=== PATIENT | male | born 1975 | race Caucasian/White ===

== ENCOUNTER 2021-03-12 12:55 | Emergency (ER) | payer OTHER, SELFPAY ==
--- NOTE | ~2021-03-12 | XR_ITS ---
XR ankle LT min 3V DATE: 03/12/2021 13:14 INDICATION: Twisted left ankle 3 weeks ago. Lateral pain. TECHNIQUE: 4 views COMPARISON: None FINDINGS: Mild plantar and posterior calcaneal enthesopathy. No fracture or dislocation of the ankle or disruption of the ankle mortise. No periosteal reaction or bone destruction. IMPRESSION: No fracture or dislocation Reviewed, dictated and finalized at location A. IMPRESSION: No fracture or dislocation
--- NOTE | 2021-03-12 12:57 | ED.GENADULT ---
HPI - General Adult General Chief complaint: Extremity Injury, Lower Stated complaint: Left ankle Pain Time Seen by Provider: 03/12/21 12:57 Source: patient Mode of arrival: ambulatory Limitations: no limitations History of Present Illness HPI narrative: 45-year-old male patient presents to the [facility] with complaints of left ankle pain for the past 3 weeks. Patient states that he rolled his ankle about 3 weeks ago when taking his dogs out and states he thought it was just a sprain and states that it was getting better except for this past week he continues to have pain. Patient states he has been wrapping wound when he is up on it and has been taking ibuprofen for the pain. Patient denies any numbness or tingling. Patient states most the pain is right around the lateral malleolus area. Related Data Allergies Allergy/AdvReac Type Severity Reaction Status Date / Time No Known Allergies Allergy Unverified 03/12/21 13:01 Review of Systems Review of Systems: Narrative: CONSTITUTIONAL: Denies fever, chills, or sweats. EYES: Denies visual changes, redness, or discharge. ENT: Denies rhinorrhea, congestion, sore throat, or otalgia. CARDIOVASCULAR: Denies chest pain, palpitations, or edema. RESPIRATORY: Denies cough or dyspnea. GASTROINTESTINAL: Denies abdominal pain, nausea, vomiting, or diarrhea. GENITOURINARY: Denies dysuria or hematuria. SKIN: Denies rash or itching. MUSCULOSKELETAL: Denies back pain, joint pain, or myalgia. Positive left ankle pain x3 weeks NEUROLOGIC: Denies headache, numbness, or weakness. PSYCHIATRIC: Denies anxiety or depression. PMFSH Past Medical History Medical History (Updated 03/12/21 @ 13:48 by PHILOMENA Munoz) Bronchitis Right wrist fracture Family History Family History (Updated 03/12/21 @ 12:59 by PHILOMENA Munoz) Other Alzheimer's dementia Breast cancer Comments At the time of my signature I agree with nursing past medical history, surgical, social, and family history. There is no relevant family history pertinent to the presenting complaint. Exam Narrative: Exam Narrative: GENERAL: Well-appearing, well-nourished, and in no acute distress. HEAD: Normocephalic, atraumatic. EYES: PERRLA and EOMI. ENT: Nares clear, no rhinorrhea or epistaxis. Mucous membranes moist. NECK: Supple. No lymphadenopathy CHEST: Clear to auscultation. No respiratory distress. HEART: Regular rate and rhythm. No murmur heard. Normal peripheral pulses. ABDOMEN: Soft, nontender, nondistended, normal active bowel sounds. EXTREMITIES: Patient is able to bear weight and ambulate but has increased pain in the left ankle. The L ankle is without obvious asymmetry or deformity when compared to the R ankle. Patient can flex/extend, invert/elisabeth. No obvious surface trauma, ecchymosis, patient has some soft tissue swelling noted to the lateral side around the lateral malleolus area. Bony tenderness to palpation over the lateral malleolus. Anterior talofibular ligament, posterior talofibular ligament, calcaneofibular ligament nontender and without swelling. No tenderness or deformity of the midfootor over the proximal fifth metatarsal. Good DP and posterior tibial pulses and sensation to light touch normal. Talar tilt test is negative for ligament laxity to valgus or vargus stress. Negative anterior draw. Peroneal nerve is intact with strong eversion and plantar flexion. SKIN: Warm, dry, no rash. NEURO: No focal deficits. Alert and oriented x3. Course Reevaluation(s) Reevaluation #1: Reevaluated patient notified him that the x-ray is negative for any acute fractures. Discussed with him that this is most likely a sprain and may take some time to fully heal. Patient verbalized understanding denies any other questions or concerns at this time. Vital Signs Vital signs: Vital Signs Temperature 37.1 C 03/12/21 13:05 Pulse Rate 110 H 03/12/21 13:05 Respiratory Rate 16 03/12/21 13:05 Blood Pressure 115/6
[2021-03-12 13:05] VITALS: BP 115/66; PULSE 110; RESP 16; TEMP 37.1; O2SAT 99
== END 2021-03-12 13:51 | disposition home or self-care (01) ==
PROVIDERS: Emergency Provider Nurse Practitioner Family
DX: S93.402A Sprain of unspecified ligament of left ankle, initial encounter (principal); X50.9XXA Other and unspecified overexertion or strenuous movements or postures, initial encounter
CPT/HCPCS: 73610; 99213; G0463

== ENCOUNTER 2021-08-17 09:51 | Emergency (ER) | payer OTHER, SELFPAY ==
[2021-08-17 10:02] VITALS: BP 135/89; PULSE 72; RESP 16; TEMP 36.3; O2SAT 99
--- NOTE | 2021-08-17 10:07 | ED_ITS ---
HPI - Dental/Oral General Chief complaint: Dental/Oral Stated complaint: facial pain Source: patient and RN notes reviewed Limitations: no limitations History of Present Illness HPI Narrative: The vaccinated patient, previously mostly healthy, presents with right upper jaw pain. Patient states he was seen by dentist in the last week, and is being considered for root canal at the same tooth. He reports he had a recent cleaning, and now has a couple day history of right maxillary molar tooth pain. No fever, visible swelling, hoarseness, trismus, discharge; symptoms are mild, worse with eating with tooth sensitivity then Related Data Allergies Allergy/AdvReac Type Severity Reaction Status Date / Time No Known Allergies Allergy Verified 08/17/21 09:57 Review of Systems Review of Systems: General/Constitutional: No weight loss,fever Eyes: N0: Redness,discharge Ears/Nose/Throat: No: Epistaxis,ear discharge Respiratory: Denies: Hemoptysis Gastrointestinal: No Vomiting, Bleeding-rectal Skin: No Lumps, eruption Neurologic: No Focal Weakness,Sz Hematologic: Denies: Petechiae/Purpura Psychiatric: No: Suicida ideationl All Other Systems: Reviewed and Negative [facility] Past Medical History Medical History (Updated 08/17/21 @ 10:34 by Raudel Zurita MD) Bronchitis Right wrist fracture Family History Family History (Updated 03/12/21 @ 12:59 by PHILOMENA Munoz) Other Alzheimer's dementia Breast cancer Comments At time of signature, agree with nursing past medical, surgical, social and family history. There is no relevant family history pertinent to the presenting complaint Exam Narrative: General Appearance: Well appearing, Conjunctiva clear Ears: External ear normal, Auditory canal normal Nose: Normal nose Mouth/Throat: Normal appearing (without jaw swelling), Normal lips, MM moist, Uvula midline (scattered dental caries and fillings,) Neck: Supple, No adenopathy Respiratory: Airway patent, No respiratory distress, Clear to auscultation Musculoskeletal: Full ROM, Non tender, Normal strength Skin: Warm, Dry, Normal color Neurological: A&O x3, Normal affect Course Vital Signs Vital signs: Vital Signs Temperature 97.3 F L 08/17/21 10:02 Pulse Rate 72 08/17/21 10:02 Respiratory Rate 16 08/17/21 10:02 Blood Pressure 135/89 08/17/21 10:02 Pulse Oximetry 99 08/17/21 10:02 Temperature 97.3 F L 08/17/21 10:02 Pulse Rate 72 08/17/21 10:02 Respiratory Rate 16 08/17/21 10:02 Blood Pressure 135/89 08/17/21 10:02 Pulse Oximetry 99 08/17/21 10:02 Discharge Plan Discharge Clinical Impression: Gingivitis Patient Disposition: Home, Self-Care Condition: Stable Instructions: Antibiotic Form, Gingivitis (ED) Prescriptions: New lidocaine HCl [Lidocaine Viscous] 2 % solution 5 ml MUCOUS MEM QID PRN (Reason: pain) Qty: 100 RF: 0 amoxicillin 875 mg tablet 875 mg PO Q12H Qty: 14 RF: 0 acetaminophen-codeine 300-30 mg tablet 1 - 1.5 tablet PO HS PRN (Reason: pain) Qty: 10 RF: 0 tramadol 50 mg tablet 50 - 75 mg PO BID PRN (Reason: pain) Qty: 30 RF: 0 Follow-up/Referrals: UNKNOWN,DOCTOR [Primary Care Provider] - Stand Alone Forms: Work/School Release IP
== END 2021-08-17 10:15 | disposition home or self-care (01) ==
PROVIDERS: Emergency Provider Emergency Medicine
DX: K05.10 Chronic gingivitis, plaque induced (principal)
CPT/HCPCS: 99213; G0463

== ENCOUNTER 2023-03-17 16:49 | Emergency (ER) | payer OTHER, SELFPAY ==
--- NOTE | ~2023-03-17 | CT_ITS ---
EXAMINATION: CT abdomen pelvis w con DATE: 03/17/2023 18:06 INDICATION: Umbilical hernia. Abdominal pain. Nausea. TECHNIQUE: Computed tomography (CT) of the abdomen and pelvis was performed with 100 mL Omnipaque 350 intravenous contrast. Automated exposure control and iterative reconstruction technique were employe d. The dose-length product was 1637.90 mGy-cm. COMPARISON: None. FINDINGS: The visualized portions of the lung bases are clear without pneumonia or pleural effusion. The heart size is normal. No pericardial effusion. The liver, gallbladder, spleen, pancreas, adrenal glands, and kidneys are normal. There is an umbilical hernia containing fat with fat stranding, consi stent with inflammation versus scarring. There are bilateral inguinal hernias containing fat. There a re no dilated loops of bowel. The appendix is normal. There are no pathologically enlarged lymph node s. There is no free intraperitoneal fluid. There is mild thoracolumbar spondylosis. IMPRESSION: 1. Umbilical hernia containing fat with fat stranding, consistent with inflammation versus scarring. 2. Bilateral inguinal hernias containing fat. Reviewed, dictated and finalized at location A. IMPRESSION: 1. Umbilical hernia containing fat with fat stranding, consistent with inflamma tion versus scarring. 2. Bilateral inguinal hernias containing fat.
[2023-03-17 16:53] VITALS: BP 136/95; PULSE 69; RESP 19; TEMP 36.7; O2SAT 99
--- NOTE | 2023-03-17 17:23 | ED.GENADULT ---
HPI - General Adult General Chief complaint: Unspecified <ROMINA Whitley Last Filed: 03/17/23 20:33> Stated complaint: umbilical hernia pain <ROMINA Whitley Last Filed: 03/17/23 20:33> Time Seen by Provider: 03/17/23 16:59 <ROMINA Whitley Last Filed: 03/17/23 20:33> Source: patient <ROMINA Whitley Last Filed: 03/17/23 20:33> Mode of arrival: ambulatory <ROMINA Whitley Last Filed: 03/17/23 20:33> Limitations: no limitations <ROMINA Whitley Last Filed: 03/17/23 20:33> History of Present Illness HPI narrative: Patient is a 47 y/o male who presents to the ED with c/o painful umbilical hernia. Patient reports he has had a known umbilical hernia for several years. He states that it is usually soft, easily reducible, nontender. It became slightly tender over the last few days, worse today, with pain slightly radiating outward across his lower abdomen. He states it remains about the same size, but feels more firm, red, and painful to the touch. It does not ever reduce fully back in flat to his abdomen. He had a normal bowel movement yesterday and this morning. He had a small bowel movement prior to arrival which she states was much smaller than his usual bowel movements. Reports slight nausea, but denies vomiting, fevers, rectal bleeding, melena. <ROMINA Whitley Last Filed: 03/17/23 20:33> Related Data Allergies/adverse reactions: Allergies Allergy/AdvReac Type Severity Reaction Status Date / Time No Known Allergies Allergy Verified 03/17/23 17:15 <ROMINA Whitley Last Filed: 03/17/23 20:33> Review of Systems Review of Systems: CONSTITUTIONAL: Denies fever, chills, or sweats. CARDIOVASCULAR: Denies chest pain RESPIRATORY: Denies dyspnea. GASTROINTESTINAL: see HPI. GENITOURINARY: Denies dysuria or hematuria. <Madhuri Wilkinson PA-C - Last Filed: 03/17/23 20:33> All systems reviewed & are unremarkable except as noted in HPI and below <Madhuri Wilkinson PA-C - Last Filed: 03/17/23 20:33> [facility] Past Medical History Medical History: Medical History (Updated 03/17/23 @ 20:19 by Madhuri Wilkinson PA-C) Bronchitis Right wrist fracture Umbilical hernia <Madhuri Wilkinson PA-C - Last Filed: 03/17/23 20:33> Surgical History Surgical History: Surgical History (Updated 03/17/23 @ 17:36 by Madhuri Wilkinson PA-C) History of colonoscopy <Madhuri Wilkinson PA-C - Last Filed: 03/17/23 20:33> Family History Family History: Family History (Updated 03/12/21 @ 12:59 by PHILOMENA Munoz) Other Alzheimer's dementia Breast cancer <Madhuri Wilkinson PA-C - Last Filed: 03/17/23 20:33> Social History Social History: Social History (Updated 03/17/23 @ 17:36 by Madhuri Wilkinson PA-C) Smoking status: Never smoker <Madhuri Wilkinson PA-C - Last Filed: 03/17/23 20:33> Exam Narrative: GENERAL: Well appearing, obese with BMI of 38.7, non-toxic, in no acute distress. HEAD: Normocephalic, atraumatic. NECK: Supple. No adenopathy, no masses. RESPIRATORY: Airway patent, respirations nonlabored. Clear to auscultation bilaterally, no rales, rhonchi, wheezing. CARDIOVASCULAR: Regular rate and rhythm without murmurs, rubs, or gallops. Peripheral pulses 2+ and equal bilaterally. ABDOMINAL: Soft, approximately 5 x 5 cm umbilical hernia bulge, slightly firm, tender to palpation, skin slightly erythematous. No warmth. Unable to reduce. Mild tenderness throughout immediate periumbilical region. Nondistended, no hepatosplenomegaly. Normoactive BS. MUSCULOSKELETAL: Moves all extremities. Strength/ROM intact without gross deformities. SKIN: Warm, dry, normal color. No rashes. NEURO: A&O X3. Speech clear. Cranial nerves II-XII grossly intact. Steady gait. No ataxic movements. PSYCHIATRIC: Appropriate mood and affect.
[2023-03-17 17:25] LABS: Basophils Percent Auto 0.6 % (0.2-1.2); Eosinophils Absolute Auto 0.2 K/mm3 (0-0.3); Eosinophils Percent Auto 3.4 % (0-4.4); Hematocrit 43.4 % (42.0-52.0); Immature Granulocyte Absolute 0.01 K/mm3 (0.00-0.031); Immature Granulocyte Percent A 0.2 % (0-0.5); Lymphocytes Absolute Auto 1.57 K/mm3 (0.9-3.2); Lymphocytes Percent Auto 24.5 % (18.3-44.2); Mean Corpuscular HGB Conc 34.6 g/dl (32-36); Mean Corpuscular Hemoglobin 29.4 pg (26-34); Mean Corpuscular Volume 85.1 fl (80-100); Mean Platelet Volume 10.9 fl (7.4-10.4); Monocytes Absolute Auto 0.4 K/mm3 (0.1-0.6); Monocytes Percent Auto 5.8 % (2.6-8.5); Neutrophils Absolute Auto 4.2 K/mm3 (1.3-6.7); Neutrophils Percent Auto 65.5 % (45.5-73.1); Platelet Count Result 154 k/mm3 (150-375); Red Cell Distribution Width 12.3 % (11.5-14.5); White Blood Count 6.4 K/mm3 (4.5-10.0)
[2023-03-17 17:26] LABS: Appearance Urine Clear (Clear); Bilirubin Urine Negative (Negative); Blood Urine Negative (Negative); Color Urine Yellow (Yellow); Glucose Urine UA Negative (Negative); Ketones Urine Trace mg/dL (Negative); Leukocyte Esterase Ur Negative LEU/UL (Negative); Nitrate Urine Negative (Negative); Protein Urine Negative (Negative); Specific Grav Ur 1.021 (1.001-1.035); pH Urine 6.5 (5.0-9.0)
[2023-03-17 17:34] LABS: Alanine Aminotransferase 38 U/L (6-50); Albumin Level 4.2 g/dL (3.5-5.1); Alkaline Phosphatase 51 U/L (38-126); Anion Gap 8 mmol/L (8-16); Aspartate Amino Transferase 33 U/L (17-59); Bilirubin,Total 0.6 mg/dL (0.2-1.3); Blood Urea Nitrogen 12 mg/dL (9-20); Calcium 8.6 mg/dL (8.4-10.2); Carbon Dioxide 24 mmol/L (22-30); Chloride 106 mmol/L (98-107); Estimated CRCL calculation 124 ml/min; Estimated Glomerular Filt Rate > 60; Glucose 120 mg/dL (65-110); Lipase 55 U/L (23-300); Potassium 3.6 mmol/L (3.4-5.0); Sodium 138 mmol/L (137-145)
[2023-03-17] MEDS: ACETAMINOPHEN 500 MG TABLET 1000 MG PO (17:38)
[2023-03-17 17:44] VITALS: BP 143/96; PULSE 67; RESP 18; O2SAT 99
[2023-03-17 17:50] LABS: Add Urine Microscopic? NO
[2023-03-17 19:12] LABS: Lactic Acid Reflex 1.3 mmol/L (0.7-2.0)
[2023-03-17 19:23] VITALS: BP 161/97; O2SAT 99
--- NOTE | 2023-03-17 19:27 | PC.NURSE ---
This RN assumed care of patient.
[2023-03-17] MEDS: KETOROLAC 30 MG/ML VIAL (*BKC) IV PUSH (19:32)
[2023-03-17 19:35] VITALS: BP 149/90; PULSE 61; RESP 18; O2SAT 99
== END 2023-03-17 20:32 | disposition home or self-care (01) ==
PROVIDERS: Emergency Provider Physician Assistant
DX: K42.0 Umbilical hernia with obstruction, without gangrene (principal); K40.20 Bilateral inguinal hernia, without obstruction or gangrene, not specified as recurrent
CPT/HCPCS: 36415; 74177; 80053; 81003; 83605; 83690; 85025; 96374; 99284; A9270; J1885; Q9967

== ENCOUNTER 2023-06-06 14:24 | Outpatient (CLI) | payer OTHER, SELFPAY | END 2023-06-06 14:25 | disposition home or self-care (01) | LOC: ANHSURGERY 14:29 | PROVIDERS: PCP Student in an Organized Health Care Education/Training Program; Visit Provider Surgery | DX: K43.9 Ventral hernia without obstruction or gangrene (principal); Z01.818 Encounter for other preprocedural examination | CPT/HCPCS: 36415; 86850; 86900; 86901 ==

== ENCOUNTER 2023-06-08 00:06 | Day surgery (SDC) | payer OTHER, SELFPAY ==
[2023-06-05 08:31] VITALS: BMI 40.8
--- NOTE | 2023-06-05 08:36 | PC.NURSE ---
Addendum entered by Glayds Stauffer RN 06/06/23 07:10: PLEASE SHOWER WITH HIBICLENS (CHLORHEXADINE) EITHER THE NIGHT BEFORE OR MORNING OF SURGERY. Original Note: Report to the Outpatient Waiting Room, entrance under the green pavilion located off [facility], at time _0600_ on date _[id number]_. Planned Procedure Time: _729_. Time changes happen often and if your time is changed the preop area will call you the afternoon before. - You and your visitor will be asked to self-screen and do not enter if you have any COVID symptoms. - A mask is optional within the hospital at this time. Patients may have clear liquids (water, carbonated beverages, clear teas, apple juice) until 3 hours prior to surgery with a maximum of 20 ounces. - No food from midnight until time of surgery Take the following medications with a SIP of water the morning of surgery: ____None DO NOT STOP ANY OF YOUR OTHER PRESCRIPTION MEDICATIONS PRIOR TO SURGERY ?EXCEPT THE FOLLOWING Medications to discontinue per physician ____None Date to take last dose Please no make-up, nail albanian, hairspray, perfume, deodorant, or body powder the day of surgery. No jewelry (including any body piercings) or valuables the day of surgery, leave them at home. Please take a shower or bath the night before, or the morning of, surgery with an antibacterial soap. Wear comfortable, loose fitting clothing. - Jewelry must be removed prior to entering the operating room. Rings and piercings that are not removed may be cut off. - The hospital will not accept responsibility for valuables. - Please leave all valuables, including medications, at home the day of surgery. If you are going home after surgery, a licensed tractor trailer driver must drive you home. - NO public transportation without another adult if you receive anesthesia. - We recommend that an adult stay with you for 24 hours following discharge. - We also recommend that you do not drive, make important decision, drink alcoholic beverages, or take any drugs that were not prescribed by your health care provider for at least 24 hours after your discharge time. Follow any additional instructions given to you from your surgeon. If you or anyone in your household have experienced Covid symptoms in the past week, please notify your surgeon or the nurse liaison at the phone number below for possible testing. Telephone instructions given to __Patient___and asked if any additional questions and then verbalized understanding. Patient advised to call surgeon office or pre surgery nurse liaison [phone] if any additional questions.
--- NOTE | 2023-06-06 15:19 | PM.SD2 ---
Same Day Admit/Disch: HPI History of Present Illness Chief complaint: 3cm Umb Hernia Narrative: Kodi Guzman is a 47 year old male who was working on a fence in early March and developed pain in the umbilicus. He had a known umbilical hernia for at least 5 years prior to this. The hernia was however bigger and hurting considerably. He went to the emergency room on March 17. The hernia was partially reduced and CT scan showed it to be a fat containing hernia with no bowel involvement. In the subsequent 2-3 days, the pain went away entirely. He was seen in the office and found to have a reducible umbilical hernia with a 3 cm defect. After discussion, he is taken to surgery now for robotic laparoscopic repair of umbilical hernia with mesh. [facility] Past Medical History Medical History Bronchitis Right wrist fracture Umbilical hernia Surgical History Surgical History H/O wisdom tooth extraction History of colonoscopy Family History Family History Other Alzheimer's dementia Breast cancer Social History Social History Smoking status: Never smoker Alcohol intake: current Substance use: never Living arrangements: with family Spiritual care concerns: No Same Day Admit/Disch: Med Pre-admit Medications Home Medications Medication Instructions Recorded Confirmed Type ketorolac 10 mg tablet 10 mg PO Q6H 4 days #16 tabs 06/08/23 Rx oxycodone-acetaminophen 5 mg-325 0.5 - 1 tablet PO Q6H PRN pain #10 06/08/23 Rx mg tablet tabs Exam Const: General: comfortable, no acute distress, alert and awake HENMT: Head: normocephalic and atraumatic Mouth: Yes Normal oral and palatal mucosa present Eyes: Conjunctivae: conjunctivae normal Pupils: Equal, round and reactive pupils present EOM: EOMs intact bilaterally Neck: Neck: normal visual inspection, no lymphadenopathy and nontender Resp: Effort & Inspection: normal respiratory effort Auscultation: clear to auscultation bilaterally Cardio: Rate: regular rate Rhythm: regular rhythm Heart sounds: no gallops, no murmurs and no rubs GI: Inspection: non-distended, obesity and visible herniation (Umbilical) GI Palp: Yes Soft to palpation, No Tenderness to palpation present (GI), No Hepatomegaly present, No Splenomegaly present and Yes Hernia present (3 cm umbilical hernia defect, reducible) : Male General Exam: No hernia (No inguinal hernia noted right or left groin area) Skin: Lesions: no lesions Rashes: no rashes Neuro: General: no focal motor deficits and CN's II-XI intact bilaterally Cranial nerves: Yes Equal, round and reactive pupils present, Yes Bilaterally intact EOM present, Yes facial symmetry and Yes Midline tongue present Speech: normal speech Motor exam (neuro): 5/5 motor strength present throughout and Motor abnormalities not present Extrem: General: no clubbing, cyanosis or edema and edema Psych: Affect: normal affect Thought process: Normal thought process present Insight: Good insight present (Psych) DS: Data Imaging Attestation: I personally reviewed and interpreted this imaging study as follows: (CT scan abdomen and pelvis from March 17, 2023) My impression: Large umbilical hernia Radiologist's impression: Umbilical hernia and bilateral fat containing inguinal hernias DS: Summary Time Spent with Patient Time attestation: Total time spent providing and/or coordinating discharge services: DS: Admitting Diagnosis Discharge Date 06/08/2023 Admitting Diagnosis Umbilical hernia-3 cm defect, plan to repair with robotic laparoscopic approach. Mesh will be used and the defect will be closed. The procedure the risks the benefits and the usual recovery have been discussed. Plan is for this to be an outpatient procedure.
[2023-06-08] VITALS (10 sets, daily range): BP systolic 128–148; BP diastolic 78–92; PULSE 57–70; RESP 11–20; TEMP 36.2–36.6; O2SAT 94–100
[2023-06-08] MEDS: ACETAMINOPHEN 500 MG TABLET 1000 MG PO (07:00)
[2023-06-08] MEDS: LACTATED RINGERS 1,000 ML 30 ML IV CONT ×2 (07:05→09:57)
[2023-06-08] MEDS: KETOROLAC 15 MG/ML VIAL (*BKC) IV PUSH (07:10)
--- NOTE | 2023-06-08 07:12 | P.PNAN_ITS ---
Anes - Initial Pre Proc Eval Procedure: Operation Date: 06/08/23 07:30 Proposed Procedures p Robotic Laparoscopic Repair Umbilical Hernia with Mesh - Antonio Wadsworth MD Date/Time: 06/08/23 07:12 Surgeon: Antonio Wadsworth MD Pre Op Diagnosis: 3cm Umb Hernia Patient Data Age: 47 Gender: M Height: 1.83 m Weight: 136.4 kg Allergies Allergy/AdvReac Type Severity Reaction Status Date / Time No Known Allergies Allergy Verified 06/08/23 06:20 Home Medications Medication Instructions Recorded Confirmed Type No Home Medications 03/26/23 06/08/23 History Patient hx anesthesia problems: none Family hx anesthesia problems: none Results Review: All pre-operative results and documents have been reviewed as part of the pre- operative evaluation. PMFSH Past Medical History Medical History Bronchitis Right wrist fracture Umbilical hernia Surgical History Surgical History H/O wisdom tooth extraction History of colonoscopy Family History Family History Other Alzheimer's dementia Breast cancer Social History Social History Smoking status: Never smoker Alcohol intake: current Substance use: never Living arrangements: with family Spiritual care concerns: No Anes - Eval Final PreProcedure Day of Procedure 06/08/23 07:12 Patient weight: morbidly obese Heart: regular rate and rhythm Lungs: clear to auscultation Airway: Mallampati scale class III Neurological: alert and oriented Last oral intake: >/= 8 hours ASA classification: III Emergent: no Anesthetic plan: proceed Anesthesia type and monitoring: general ETT and standard monitoring Results Review: All pre-operative results and documents have been reviewed as part of the pre- operative evaluation. Informed Consent: The patient's anesthetic plan and its attendant risks and benefits were discussed with the patient/family/POA. Questions were solicited and answers provided to the satisfaction of the patient/family/POA.
--- NOTE | 2023-06-08 07:13 | WPDHPUPDATE1 ---
History and Physical Update Update Date/Time: 06/08/23 07:13 History and Physical has been reviewed, including an updated exam of the patient. There are NO changes in the patient's condition. Risks, benefits, and alternatives have been discussed and questions answered. Patient agrees to proceed with procedure.
[2023-06-08] MEDS: ceFAZolin 3 GM/D5W 100 ML 100 ML IVPB (07:30)
[2023-06-08] MEDS: BUPIVACAINE/EPINEPHRINE 0.5% 10 ML VIAL 30 ML INFILTRATE (08:22)
--- NOTE | 2023-06-08 09:50 | P.OP_ITS ---
Procedure Note - Detailed Date of Procedure 06/08/23 Pre-op Diagnosis 3cm Umb Hernia Post-op Diagnosis Other (2 cm umbilical hernia) Procedure Performed Robotic laparoscopic repair 2 cm umbilical hernia with 10 x [address] mesh Surgeon Antonio Wadsworth MD Client Advisor Radha DIANA Anesthesia General and Local (0.25% Marcaine with epinephrine) Indications Patient has history of longstanding umbilical hernia. He recently had an episode where the hernia became incarcerated. It was able to be reduced. He is taken to surgery now for repair of the umbilical hernia. Findings He had at 2 cm hernia defect. It was closed transversely. No other significant findings were noted Description of Procedure Patient was taken to surgery and induced into general anesthesia. The abdomen is prepped and draped. There was a bump under his left hip and shoulder so that the left flank was more exposed. Local was infiltrated prior to placement of each of the trocars. First incision was at the left costal margin close to the anterior axillary line. The varies needle was introduced and insufflation carried out. We then placed a 5 mm optical trocar. Intraperitoneal location was verified and the hernia defect was visualized. A left lower quadrant and a left mid abdominal trocar were then placed under direct vision. These were 8 mm robotic trocars. The 5 mm optical trocar was then replaced with an 8 mm trocar suitable for the robot. The robot was then brought into the field. The camera was docked and targeted. The remaining arms were docked and instruments were placed and positioned. The surgeon then went to the robotic console. There was a large amount of omentum chronically incarcerated in the hernia defect. This was reduced and placed back in the abdomen. I then took down some of the properitoneal fat and the falciform ligament so that fascial edges of the hernia defect were clearly evident. Bleeding was controlled with the cautery or the bipolar. An 0 V lock was then used to close the defect. The 10 x [address] mesh was then introduced into the abdominal cavity. It was unrolled and positioned appropriately. The needle from the 0 V lock was then passed through the center of the mesh. The mesh was attached to the anterior abdominal wall and the 0 V lock was run to the patient's right side to secure that aspect of the mesh to the anterior abdominal wall while the mesh was sutured in place. To 0 V lock suture were then used in running fashion to circumferentially secure the mesh to the anterior abdominal wall. Once this was completed, all looked good with the mesh sutured in place and no buckling or other problems. All the suture needles were then removed. The robot was undocked and the instruments removed. Trocars were removed as well. The skin wounds were closed with subcuticular 4-0 Monocryl skin suture. All wounds were dressed with Exofin surgical adhesive. The patient was awakened and taken to recovery in good condition. Sponge and needle counts were correct x2. Implants 10 x [address] mesh Estimated Blood Loss -10.0 Drains No Packing No Pathology None sent Complications No immediate complications Condition Stable Disposition PACU [facility] Billing Surgery - Charge Forward: Surgery Billing (Robotic laparoscopic repair 2 cm umbilical hernia with mesh)
[2023-06-08] MEDS: ONDANSETRON INJ 4 MG/2 ML VIAL IV PUSH (09:54)
[2023-06-08] MEDS: fentaNYL CITRATE INJ (*CRX) 100 MCG/2 ML VIAL 25 MCG IV PUSH ×2 (10:08→10:11)
[2023-06-08] MEDS: oxyCODONE HCL (*CRX) 5 MG TAB IR PO (10:36)
[2023-06-08] MEDS: diphenhydrAMINE HCl INJ 50 MG/ML VIAL 12.5 MG IV PUSH (10:50)
== END 2023-06-08 11:36 | disposition home or self-care (01) ==
PROVIDERS: PCP Student in an Organized Health Care Education/Training Program; Visit Provider Surgery
PROC: (CPT 49591; principal; 2023-06-08 07:30)
DX: K42.9 Umbilical hernia without obstruction or gangrene (principal); E66.9 Obesity, unspecified; Z68.39 Body mass index [BMI] 39.0-39.9, adult
CPT/HCPCS: 49591; S2900; A9270; C1781; J0330; J0690; J1100; J1170; J1200; J1885; J2250; J2405; J2704; J3010; J7030; J7120

== ENCOUNTER 2023-07-03 07:43 | Outpatient (CLI) | payer OTHER, SELFPAY ==
--- NOTE | ~2023-07-03 | US_ITS ---
EXAMINATION: US soft tissue abdomen DATE: 07/03/2023 08:26 INDICATION: Localized swelling, mass and lump, abdomen . TECHNIQUE: Multiple grayscale and Doppler ultrasound images of the abdomen were obtained. COMPARISON: CT abdomen and pelvis 03/17/2023 FINDINGS: There is a 4.4 x 1.1 x 3.4 cm thick-walled fluid collection with low level echoes in the um bilical region. IMPRESSION: 1. 4.1 x 1.1 x 3.4 cm fluid collection in the umbilical region after umbilical hernia repair. This fi nding may be a seroma or chronic hematoma. Reviewed, dictated and finalized at location A. IMPRESSION: 1. 4.1 x 1.1 x 3.4 cm fluid collection in the umbilical region after umbilical hernia repair. This finding may be a seroma or chronic hematoma.
== END 2023-07-03 07:44 ==
PROVIDERS: PCP Surgery; Visit Provider Surgery
DX: R22.9 Localized swelling, mass and lump, unspecified (principal)
CPT/HCPCS: 76705

== ENCOUNTER 2025-05-17 10:58 | Emergency (ER) | payer OTHER, SELFPAY ==
[2025-05-17 11:05] VITALS: BP 157/99; PULSE 80; RESP 20; TEMP 36.5; O2SAT 96
--- NOTE | 2025-05-17 11:13 | ED.EAR ---
HPI - Ear Problem General Chief complaint: Ear Stated complaint: clogged ears Time Seen by Provider: 05/17/25 11:13 Source: patient Mode of arrival: ambulatory Limitations: no limitations History of Present Illness HPI Narrative: 49 yo M presents with c/o both ears clogged. hx of wax impaction. All systems reviewed and negative except as noted above. Related Data Home Medications ?Medication ?Instructions ?Recorded ?Confirmed ?Last Taken ?Type losartan 50 mg tablet mg 05/17/25 Unknown History Allergies Allergy/AdvReac Type Severity Reaction Status Date / Time No Known Allergies Allergy Verified 05/17/25 11:08 Review of Systems Review of Systems: CONSTITUTIONAL: Denies fever, chills, or sweats. EYES: Denies visual changes, redness, or discharge. ENT: Denies rhinorrhea, congestion, sore throat. Reports calling sensation to bilateral ears CARDIOVASCULAR: Denies chest pain, palpitations, or edema. RESPIRATORY: Denies cough or dyspnea. GASTROINTESTINAL: Denies abdominal pain, nausea, vomiting, or diarrhea. GENITOURINARY: Denies dysuria or hematuria. SKIN: Denies rash or itching. MUSCULOSKELETAL: Denies back pain, joint pain, or myalgia. NEUROLOGIC: Denies headache, numbness, or weakness. PSYCHIATRIC: Denies anxiety or depression. All other systems reviewed are negative, except as documented in HPI. [facility] Past Medical History Medical History Bronchitis Right wrist fracture Umbilical hernia Surgical History Surgical History H/O wisdom tooth extraction History of colonoscopy History of umbilical hernia repair 06/08/2023 - Robotic laparoscopic repair 2 cm umbilical hernia with 10 x [address] mesh Family History Family History Other Alzheimer's dementia Breast cancer Social History Social History Smoking status: Never smoker Alcohol intake: current Substance use: never Living arrangements: with family Spiritual care concerns: No Comments At time of signature, agree with nursing past medical, surgical, social and family history. There is no relevant family history pertinent to the presenting complaint. Exam Narrative: GENERAL: This is a well-nourished, well-developed patient, in no apparent distress. HEAD: normocephalic, atraumatic. EYES: PERRL. Sclera clear/white. Vision is grossly intact. EARS: External ears normal, cerumen impacted to bilateral ear canals, after irrigation with warm water canals are erythematous and macerated but not necessarily infected. No swelling noted. TMs normal without perforation. Hearing grossly intact. NOSE: External nose normal with no obvious nasal discharge, nares without redness, no rhinorrhea. THROAT: Mucous membranes moist, posterior pharynx clear. NECK: Neck supple, non-tender without lymphadenopathy, masses or thyromegaly. CARDIOVASCULAR: Regular rate and rhythm without murmurs, gallops, or rubs. RESPIRATORY: Clear to auscultation. Breath sounds equal bilaterally. No wheezes, rales, or rhonchi. SKIN: warm, Dry, intact with no suspicious lesions or rash, good texture and turgor. NEURO: awake, alert, and oriented to person, place and time. There were no obvious focal neurologic abnormalities. EXTREMITIES: No joint tenderness, effusion, or edema noted. Course Course Level of Care: Express Care Visit Vital Signs Vital signs: Vital Signs Temperature 36.5 C 05/17/25 11:05 Pulse Rate 80 05/17/25 11:05 Respiratory Rate 05/17/25 11:05 Blood Pressure 157/99 H 05/17/25 11:05 Pulse Oximetry 96 05/17/25 11:05 Oxygen Delivery Room Air 05/17/25 11:05 Temperature 36.5 C 05/17/25 11:05 Pulse Rate 80 05/17/25 11:05 Respiratory Rate 20 05/17/25 11:05 Blood Pressure 157/99 H 05/17/25 11:05 Pulse Oximetry 96 05/17/25 11:05 Oxygen Delivery Room Air 05/17/25 11:05 Reviewed Medical Decision Making MDM Narrative Medical decision making narrative: cerumen irrigated with warm water. Will treat with antibiotic ear drops due to exam findings. Patient agrees with plan of care. Vital Signs Vital Signs: Vital Signs Temperature 36.5 C 05/17/25 11:05 Pulse Rate 80 05/17/25 11:05 Respiratory Rate 20 05/17/25 11:05 Blood Pressure 157/99 H 05/17/25 11:05 Pulse Oximetry 96 05/17/25 11:05 Oxygen Delivery Room Air 05/17/25 11:05 Temperature 36.5 C 05/17/25 11:05 Pulse Rate 80 05/17/25 11:05 Respiratory Rate 20 05/17/25 11:05 Blood Pressure 157/99 H 05/17/25 11:05 Pulse Oximetry 96 05/17/25 11:05 Oxygen Delivery Room Air 05/17/25 11:05 Discharge Plan Discharge Clinical Impression: Bilateral hearing loss due to cerumen impaction Patient Disposition: Home Condition: Stable Instructions: Antibiotic Form Additional Instructions: Cerumen was irrigated from both ear canals today. place antibiotic ear drops as prescribed. Follow-up with primary care physician as needed. Patient Language: Bengali Prescriptions: New ofloxacin 0.3 % drops 10 drp EACH EAR DAILY 7 Days Qty: 5 0RF No Action losartan 50 mg tablet Follow-up/Referrals: Idalia,DO Marlo [Primary Care Provider] - Time of Disposition: 11:25
== END 2025-05-17 11:28 | disposition home or self-care (01) ==
PROVIDERS: Emergency Provider Nurse Practitioner Family; PCP Student in an Organized Health Care Education/Training Program
DX: H61.23 Impacted cerumen, bilateral (principal)
CPT/HCPCS: 69209; 99213; G0463